=== PATIENT | female | born 1955 | race Caucasian/White ===

== ENCOUNTER → 2020-03-06 14:56 | Outpatient (BNVA) | payer MEDICARE, MEDICAID, SELFPAY | PROVIDERS: PCP Family Medicine; Visit Provider Specialist | DX: R55 Syncope and collapse (principal); R25.1 Tremor, unspecified | CPT/HCPCS: 95816 ==

== ENCOUNTER → 2020-10-24 09:44 | Outpatient (BNVA) | payer MEDICARE, MEDICAID, SELFPAY | PROVIDERS: PCP Family Medicine; Visit Provider Anesthesiology Pain Medicine | DX: M54.9 Dorsalgia, unspecified (principal); M51.16 Intervertebral disc disorders with radiculopathy, lumbar region; M47.816 Spondylosis without myelopathy or radiculopathy, lumbar region; Z79.899 Other long term (current) drug therapy | CPT/HCPCS: 99205 ==

== ENCOUNTER 2021-01-15 13:16 | Outpatient (CLI) | payer MEDICARE, MEDICAID, SELFPAY ==
--- NOTE | 2021-01-15 13:30 | CT_ITS ---
WS: [id number] CT of the lumbar spine, additional two-dimensional coronal and sagittal imaging was obtained. 01/16/20 21 Clinical Data: M54.16 - Radiculopathy, lumbar region Comparison: None. DLP: 2027.[address] scans at [facility] use at least one of these dose optimization techniques: automat ed exposure control; mA and/or kV adjustment per patient size (includes targeted exams where dose is matched to clinical indication); or iterative reconstruction. Findings: There is complete loss of the disc space at the L4-L5 level. No compression fractures are s een. There is anterior osteophytic spurring from L1 through L3. The transverse processes and SI joint s are normal. T11-T12: No canal stenosis, disc bulge or foraminal narrowing is seen. T12-L1: No canal stenosis, disc bulge or foraminal narrowing is seen. There is facet joint arthritis. L1-L2: No canal stenosis or disc bulge is seen. There is facet joint arthritis with foraminal narrowi ng. L2-L3: There is central disc bulging with central canal narrowing is seen. There is facet joint arthr itis with foraminal narrowing L3-L4: There is marked disc bulging with facet joint arthritis causing canal and foraminal stenosis. L4-L5: There is loss of the disc space with posterior impingement by a disc-bone complex. There is fa cet joint arthritis. There is foraminal and central canal narrowing. L5-S1: No canal stenosis or disc bulge is seen. There is facet joint arthrosis causing canal stenosi s. CT/CT lumbar spine wo con* [id number] Impression: 1. Disc space obliteration at L4-L5. 2. Mild osteoarthritic change of the vertebral bodies L1-L3. 3. Multilevel disc bulging and facet joint arthritis causing canal and foramina l stenosis.
--- NOTE | 2021-01-15 13:45 | XR_ITS ---
WS: [id number] Lumbar spine, 5 views including both obliques, 01/15/2021 Clinical Data: M47.816 - Spondylosis without myelopathy or radiculopathy, lumbar region Comparison: None. Findings: There is disc space narrowing at L4-L5. There is osteoarthritic spurring of all the lumbar vertebral bodies. No compression fractures are seen. The transverse processes and SI joints are normal. The oblique aileen ms show no spondylolysis. No subluxation is seen. XR/XR lumbar spine min 4V [id number] Impression: 1. Degenerative disc narrowing at L4-L5. 2. Osteoarthritis of all lumbar vertebral bodies. 3. Negative for spondylolysis on the oblique films.
== END 2021-01-15 13:17 | disposition home or self-care (01) ==
LOC: RADWPI 13:19
PROVIDERS: PCP Family Medicine; Visit Provider Anesthesiology Pain Medicine
DX: M54.16 Radiculopathy, lumbar region (principal); M47.816 Spondylosis without myelopathy or radiculopathy, lumbar region; M51.26 Other intervertebral disc displacement, lumbar region; M48.061 Spinal stenosis, lumbar region without neurogenic claudication
CPT/HCPCS: 72110; 72131

== ENCOUNTER → 2021-02-01 08:44 | Outpatient (BNVA) | payer MEDICARE, MEDICAID, SELFPAY | PROVIDERS: PCP Family Medicine; Visit Provider Anesthesiology Pain Medicine | DX: M54.9 Dorsalgia, unspecified (principal); M51.16 Intervertebral disc disorders with radiculopathy, lumbar region; M47.816 Spondylosis without myelopathy or radiculopathy, lumbar region | CPT/HCPCS: 99214 ==

== ENCOUNTER → 2021-02-14 13:12 | Outpatient (BNVA) | payer MEDICARE, MEDICAID, SELFPAY | PROVIDERS: PCP Family Medicine; Visit Provider Anesthesiology Pain Medicine | DX: Z01.812 Encounter for preprocedural laboratory examination (principal); M47.816 Spondylosis without myelopathy or radiculopathy, lumbar region; E11.9 Type 2 diabetes mellitus without complications; M54.9 Dorsalgia, unspecified | CPT/HCPCS: 64493; 64494; 64495; J3490 ==

== ENCOUNTER → 2021-03-01 09:50 | Outpatient (BNVA) | payer MEDICARE, MEDICAID, SELFPAY | PROVIDERS: PCP Family Medicine; Visit Provider Anesthesiology Pain Medicine | DX: G89.29 Other chronic pain (principal); M54.9 Dorsalgia, unspecified; M51.16 Intervertebral disc disorders with radiculopathy, lumbar region; M47.816 Spondylosis without myelopathy or radiculopathy, lumbar region; E66.01 Morbid (severe) obesity due to excess calories; M79.604 Pain in right leg | CPT/HCPCS: 99214 ==

== ENCOUNTER → 2021-03-23 12:31 | Outpatient (BNVA) | payer MEDICARE, MEDICAID, SELFPAY | PROVIDERS: PCP Family Medicine; Visit Provider Anesthesiology Pain Medicine | DX: Z01.812 Encounter for preprocedural laboratory examination (principal); M47.816 Spondylosis without myelopathy or radiculopathy, lumbar region; M54.9 Dorsalgia, unspecified; E11.9 Type 2 diabetes mellitus without complications | CPT/HCPCS: 64635; 64636; J1030 ==

== ENCOUNTER → 2021-04-04 12:29 | Outpatient (BNVA) | payer MEDICARE, MEDICAID, SELFPAY | PROVIDERS: PCP Family Medicine; Visit Provider Anesthesiology Pain Medicine | DX: Z01.812 Encounter for preprocedural laboratory examination (principal); M47.816 Spondylosis without myelopathy or radiculopathy, lumbar region; E11.9 Type 2 diabetes mellitus without complications; M54.9 Dorsalgia, unspecified; Z79.899 Other long term (current) drug therapy | CPT/HCPCS: 64635; 64636; J1030 ==

== ENCOUNTER → 2021-04-19 10:39 | Outpatient (BNVA) | payer MEDICARE, MEDICAID, SELFPAY | PROVIDERS: PCP Family Medicine; Visit Provider Anesthesiology Pain Medicine | DX: M51.16 Intervertebral disc disorders with radiculopathy, lumbar region (principal); M47.816 Spondylosis without myelopathy or radiculopathy, lumbar region; M54.9 Dorsalgia, unspecified; E66.01 Morbid (severe) obesity due to excess calories; M79.604 Pain in right leg; M17.9 Osteoarthritis of knee, unspecified | CPT/HCPCS: 99214 ==

== ENCOUNTER → 2021-04-26 10:26 | Outpatient (BNVA) | payer MEDICARE, MEDICAID, SELFPAY | PROVIDERS: PCP Family Medicine; Visit Provider Specialist | DX: G40.802 Other epilepsy, not intractable, without status epilepticus (principal); G40.309 Generalized idiopathic epilepsy and epileptic syndromes, not intractable, without status epilepticus; M51.16 Intervertebral disc disorders with radiculopathy, lumbar region | CPT/HCPCS: 99214 ==